=== PATIENT | male | born 1970 | race Caucasian/White ===

== ENCOUNTER 2017-02-16 20:07 | Emergency (ER) | payer MEDICARE ==
[2017-02-17 00:56] LABS: HEMOGLOBIN 13.8 gm/dl (14.0-17.5); RED BLOOD COUNT 4.64 M/UL (4.20-5.50); WHITE BLOOD COUNT 9.1 K/UL (4.5-11.0)
[2017-02-17 01:27] LABS: BUN/CREATININE RATIO 24 (0-10)
== END 2017-02-17 03:41 | disposition home or self-care (01) ==
LOC: ER1 20:07
PROVIDERS: Family Medicine
DX: L03.011 Cellulitis of right finger (principal); E11.628 Type 2 diabetes mellitus with other skin complications; E11.65 Type 2 diabetes mellitus with hyperglycemia; Z79.84 Long term (current) use of oral hypoglycemic drugs; Z79.899 Other long term (current) drug therapy
CPT/HCPCS: 36415; 73130; 80053; 85025; 86140; 87040; 90715; 96365; 99283; J7030

== ENCOUNTER 2017-03-20 21:03 | Observation (INO) | payer MEDICARE ==
[~2017-03-20] VITALS: Ht 172.7 cm; Wt 64.9 kg
[2017-03-20 21:57] LABS: HEMOGLOBIN 13.5 gm/dl (14.0-17.5); RED BLOOD COUNT 4.57 M/UL (4.20-5.50); WHITE BLOOD COUNT 6.5 K/UL (4.5-11.0)
[2017-03-20 22:23] LABS: BUN/CREATININE RATIO 31 (0-10)
[2017-03-21] MEDS ORDERED: JANUVIA 100 MG100 MG PO (06:05)
[2017-03-21] MEDS ORDERED: TENORMIN 50 MG50 MG PO (06:06)
[2017-03-21] MEDS ORDERED: METFORMIN HCL1000 MG PO (06:06)
[2017-03-21] MEDS ORDERED: ASPIRIN81 MG PO (18:20)
[2017-03-21] MEDS ORDERED: IMDUR ER TAB 3030 MG PO (18:20)
[2017-03-21] MEDS ORDERED: NITROGLYCERIN0.4 MG SL (18:21)
== END 2017-03-21 19:10 | disposition home or self-care (01) ==
LOC: ER1 21:03 → ZEROF 03-21 01:00 → M/S 03-21 01:00
PROVIDERS: Emergency Medicine; ADMIT Internal Medicine
DX: R07.9 Chest pain, unspecified (principal); E11.65 Type 2 diabetes mellitus with hyperglycemia; D64.9 Anemia, unspecified; R00.0 Tachycardia, unspecified; I49.9 Cardiac arrhythmia, unspecified; R06.00 Dyspnea, unspecified; E78.5 Hyperlipidemia, unspecified; Z79.82 Long term (current) use of aspirin; Z79.899 Other long term (current) drug therapy; Z82.49 Family history of ischemic heart disease and other diseases of the circulatory system
CPT/HCPCS: 36415; 36600; 71020; 78452; 80053; 80061; 82150; 82550; 82553; 82803; 82962; 83036; 83690; 83735; 83874; 83880; 84443; 84484; 85025; 85379; 86140; 93005; 93017; 96372; 96376; 99285; A9502; G0378; J1650; J2785

== ENCOUNTER → 2021-03-13 | Outpatient (CLI) | payer OTHER ==
[~2021-03-13] MED LIST: ASPIRIN81 MG PO; ATENOLOL100 MG PO; BACTRIM DS TAB1 EACH PO; BACTROBAN OINT22 GM EXT; CATAPRES 0.1MG0.1 MG PO; CLEOCIN HCL300 MG PO; COZAAR50 MG PO; DIABETA 2.5 MG2.5 MG PO; FAMOTIDINE20 MG PO; FEOSOL325 MG PO; FLEXERIL 10 MG10 MG PO; IMDUR ER TAB 3030 MG PO; JANUVIA 100 MG100 MG PO; KEFLEX CAP 500500 MG PO; METFORMIN HCL1000 MG PO; NAPROSYN500 MG PO; NITROGLYCERIN0.4 MG SL; TENORMIN 25 MG25 MG PO; TENORMIN 50 MG50 MG PO; THERAGRAN M TAB1 EA PO; TIMOPTIC 0.5% OP5 ML OD; ZANTAC 150 MG150 MG PO
== END ==
LOC: LAB 11:54
DX: Z01.84 Encounter for antibody response examination (principal); N18.6 End stage renal disease
CPT/HCPCS: 36415

== ENCOUNTER → 2021-03-27 | Outpatient (CLI) | payer OTHER ==
[2021-03-27 15:28] LABS: HEMOGLOBIN 8.9 gm/dl (14.0-17.5); RED BLOOD COUNT 3.05 M/UL (4.20-5.50); WHITE BLOOD COUNT 6.6 K/UL (4.5-11.0)
== END ==
LOC: LAB 13:53
PROVIDERS: Internal Medicine Nephrology
DX: N18.4 Chronic kidney disease, stage 4 (severe) (principal)
CPT/HCPCS: 36415; 80053; 82570; 82728; 83540; 83550; 83970; 84100; 84156; 85027

== ENCOUNTER → 2021-04-25 | Outpatient (CLI) | payer OTHER ==
[2021-04-25 08:25] LABS: HEMOGLOBIN 8.5 gm/dl (14.0-17.5); RED BLOOD COUNT 2.88 M/UL (4.20-5.50); WHITE BLOOD COUNT 7.6 K/UL (4.5-11.0)
== END ==
LOC: LAB 07:42
PROVIDERS: Internal Medicine Nephrology
DX: N18.4 Chronic kidney disease, stage 4 (severe) (principal)
CPT/HCPCS: 36415; 80053; 82570; 84156; 85027

== ENCOUNTER → 2021-05-11 | Outpatient (CLI) | payer OTHER ==
[2021-05-13 10:13] LABS: HBSAG SCREEN Negative (Negative); HEP A AB, IGM Negative (Negative); HEP B CORE AB, IGM Negative (Negative); HEP C VIRUS AB <0.1 (0.0-0.9)
== END ==
LOC: LAB 15:02
PROVIDERS: Internal Medicine Nephrology
DX: N18.5 Chronic kidney disease, stage 5 (principal)
CPT/HCPCS: 36415; 80074

== ENCOUNTER 2021-06-24 11:13 | Emergency (ER) | payer OTHER ==
[2021-06-24 13:57] LABS: HEMOGLOBIN 9.1 gm/dl (14.0-17.5); RED BLOOD COUNT 3.14 M/UL (4.20-5.50); WHITE BLOOD COUNT 28.7 K/UL (4.5-11.0)
== END 2021-06-24 19:20 | disposition other institution (70) ==
LOC: ER1 11:13
PROVIDERS: Physician Assistant Medical
DX: R00.2 Palpitations (principal); Z94.0 Kidney transplant status; E11.9 Type 2 diabetes mellitus without complications; I10 Essential (primary) hypertension; Z88.5 Allergy status to narcotic agent
CPT/HCPCS: 36415; 71045; 80053; 81001; 82550; 82553; 83605; 83874; 84484; 85025; 87040; 87077; 87086; 87186; 93005; 96374; 96375; 99285; J0696; J2405

== ENCOUNTER → 2021-08-14 | Outpatient (CLI) | payer OTHER ==
[2021-08-14 12:04] LABS: RED BLOOD COUNT 3.05 M/UL (4.20-5.50); WHITE BLOOD COUNT 4.3 K/UL (4.5-11.0)
[2021-08-14 12:22] LABS: BUN/CREATININE RATIO 15 (0-10)
[2021-08-15 08:15] LABS: HBSAG SCREEN Negative (Negative); HEP A AB, IGM Negative (Negative); HEP B CORE AB, IGM Negative (Negative); HEP C VIRUS AB 1.1 (0.0-0.9)
[2021-08-15 13:09] LABS: TACROLIMUS BY IMMUNOASSAY 8.6 ng/mL (2.0-20.0)
== END ==
LOC: LBRF 11:32
DX: I12.9 Hypertensive chronic kidney disease with stage 1 through stage 4 chronic kidney disease, or unspecified chronic kidney disease (principal); U07.1 COVID-19; E11.22 Type 2 diabetes mellitus with diabetic chronic kidney disease; E11.319 Type 2 diabetes mellitus with unspecified diabetic retinopathy without macular edema; Z94.0 Kidney transplant status; N18.9 Chronic kidney disease, unspecified; B96.5 Pseudomonas (aeruginosa) (mallei) (pseudomallei) as the cause of diseases classified elsewhere; B17.10 Acute hepatitis C without hepatic coma; N39.0 Urinary tract infection, site not specified
CPT/HCPCS: 80069; 80074; 80197; 81001; 82570; 84156; 85025; 85652; 86140; 87086

== ENCOUNTER → 2021-08-23 | Outpatient (CLI) | payer OTHER ==
[2021-08-23 10:10] LABS: HEMOGLOBIN 10.6 gm/dl (14.0-17.5); RED BLOOD COUNT 3.56 M/UL (4.20-5.50); WHITE BLOOD COUNT 5.4 K/UL (4.5-11.0)
== END ==
LOC: LAB 09:03
PROVIDERS: Internal Medicine Nephrology
DX: R39.9 Unspecified symptoms and signs involving the genitourinary system (principal); D64.9 Anemia, unspecified; R79.89 Other specified abnormal findings of blood chemistry; Z94.0 Kidney transplant status
CPT/HCPCS: 36415; 80069; 82570; 83735; 84100; 84156; 85025; 87086

== ENCOUNTER → 2021-08-28 | Outpatient (CLI) | payer OTHER ==
[2021-08-28 11:51] LABS: HEMOGLOBIN 10.9 gm/dl (14.0-17.5); RED BLOOD COUNT 3.66 M/UL (4.20-5.50); WHITE BLOOD COUNT 6.7 K/UL (4.5-11.0)
[2021-08-28 12:23] LABS: BUN/CREATININE RATIO 28 (0-10)
== END ==
LOC: LBRF 11:03
DX: E11.22 Type 2 diabetes mellitus with diabetic chronic kidney disease (principal); U07.1 COVID-19; N39.0 Urinary tract infection, site not specified; B96.5 Pseudomonas (aeruginosa) (mallei) (pseudomallei) as the cause of diseases classified elsewhere; Z94.0 Kidney transplant status
CPT/HCPCS: 80053; 85025

== ENCOUNTER → 2022-04-06 | Outpatient (CLI) | payer MEDICARE, OTHER ==
[2022-04-06 12:43] LABS: HEMOGLOBIN 12.4 gm/dl (14.0-17.5); RED BLOOD COUNT 4.53 M/UL (4.20-5.50); WHITE BLOOD COUNT 2.5 K/UL (4.5-11.0)
[2022-04-06 13:09] LABS: BUN/CREATININE RATIO 17 (0-10)
== END ==
LOC: LAB 12:26
PROVIDERS: Surgery
DX: E11.51 Type 2 diabetes mellitus with diabetic peripheral angiopathy without gangrene (principal); L97.529 Non-pressure chronic ulcer of other part of left foot with unspecified severity; Z94.0 Kidney transplant status
CPT/HCPCS: 36415; 80048; 85027

== ENCOUNTER 2022-04-15 20:36 | Emergency (ER) | payer MEDICARE, OTHER | END 2022-04-15 23:06 | disposition left against medical advice (07) | LOC: ER1 20:36 | DX: R00.0 Tachycardia, unspecified (principal) | CPT/HCPCS: 93005; 99283 ==